=== PATIENT | female | born 1975 | race Caucasian/White ===

== ENCOUNTER 2018-10-20 12:09 | Outpatient (REF) | payer BC, SELFPAY ==
[2018-10-20 22:37] LABS: ALT 35 U/L (12-78); AST 12 U/L (15-37); Albumin 3.8 g/dL (3.4-5.0); Alkaline Phosphatase 81 U/L (46-116); Anion Gap 10.1 mmol/L (3-11); BUN 10 mg/dL (7-18); Bilirubin, Total 0.6 mg/dL (0.2-1.0); CO2 25.9 mmol/L (21.0-32.0); CREATININE 0.69 mg/dL (0.55-1.02); Calcium 8.9 mg/dL (8.5-10.1); Chloride 103 mmol/L (98-107); Cholesterol 191 mg/dL (50-200); Glucose 97 mg/dL (70-100); HDL Cholesterol 44 mg/dL (40-60); LDL CHOLESTEROL 125 mg/dL (<100); Potassium 4.4 mmol/L (3.5-5.1); Sodium 139 mmol/L (136-145); Triglyceride 101 mg/dL (30-150)
== END 2018-10-20 12:29 ==
LOC: NCHCN 12:09
PROVIDERS: PCP Nurse Practitioner Family; Visit Provider Nurse Practitioner Family
DX: E78.5 Hyperlipidemia, unspecified (principal)
CPT/HCPCS: 80053; 80061; 83721

== ENCOUNTER 2020-02-12 09:40 | Outpatient (REF) | payer BC, SELFPAY ==
[2020-02-12 21:56] LABS: Anion Gap 7.6 mmol/L (3-11); BUN 11 mg/dL (7-18); CO2 25.4 mmol/L (21.0-32.0); CREATININE 0.51 mg/dL (0.55-1.02); Calcium 8.8 mg/dL (8.5-10.1); Calculated LDL 113 mg/dL (<100); Chloride 108 mmol/L (98-107); Cholesterol 174 mg/dL (<200); Glucose 117 mg/dL (74-106); HDL Cholesterol 40 mg/dL (40-60); Potassium 4.5 mmol/L (3.5-5.1); Sodium 141 mmol/L (136-145); Triglyceride 109 mg/dL (<150)
== END 2020-02-12 10:00 ==
LOC: NCHCN 09:40
PROVIDERS: PCP Nurse Practitioner Family; Visit Provider Nurse Practitioner Community Health
DX: E78.5 Hyperlipidemia, unspecified (principal); I10 Essential (primary) hypertension
CPT/HCPCS: 80048; 80061

== ENCOUNTER 2022-11-10 09:47 | Outpatient (REF) | payer BC, SELFPAY ==
[2022-11-10 15:19] LABS: HCT 39.4 % (36.0-46.0); HGB 12.4 g/dL (11.2-15.7); MCH 25.9 pg (27.0-33.0); MCHC 31.5 % (32.0-36.0); MCV 82 fL (80-95); Platelet Count 290 10^3/uL (130-400); RBC 4.79 10^6/uL (3.93-5.22); RDW 14.2 % (11.7-14.6); RDW-SD 42.4 fL
[2022-11-10 15:56] LABS: ALT 35 U/L (14-59); AST 22 U/L (15-37); Albumin 3.8 g/dL (3.4-5.0); Alkaline Phosphatase 93 U/L (46-116); BUN 15 mg/dL (7-18); Bilirubin, Total 0.6 mg/dL (0.2-1.0); CREATININE 0.8 mg/dL (0.55-1.02); Calcium 8.8 mg/dL (8.5-10.1); Calculated LDL 115 mg/dL (<100); Chloride 106 mmol/L (98-107); Cholesterol 182 mg/dL (<200); Estimated GFR 90.83 (mL/min/1.73m2); Glucose 168 mg/dL (74-106); HDL Cholesterol 43 mg/dL (40-60); Potassium 3.7 mmol/L (3.5-5.1); Sodium 140 mmol/L (136-145); TSH 1.45 uIU/mL (0.36-3.74); Total Protein 7.6 g/dL (6.4-8.2); Triglyceride 121 mg/dL (<150)
[2022-11-11 09:38] LABS: Hepatitis C Ab w Rflx HCV PCR Negative (Negative)
== END 2022-11-10 09:48 | disposition home or self-care (01) ==
LOC: NCHCN 09:47
PROVIDERS: PCP Nurse Practitioner Family; Visit Provider Nurse Practitioner Family
DX: Z00.00 Encounter for general adult medical examination without abnormal findings (principal); I10 Essential (primary) hypertension; R53.81 Other malaise; R53.83 Other fatigue; E78.5 Hyperlipidemia, unspecified; R73.09 Other abnormal glucose; Z11.59 Encounter for screening for other viral diseases
CPT/HCPCS: 80053; 80061; 85027; 86803; 83036; 84443

== ENCOUNTER 2023-11-25 12:32 | Outpatient (REF) | payer BC, SELFPAY ==
[2023-11-25 15:02] LABS: HCT 41.4 % (36.0-46.0); HGB 12.5 g/dL (11.2-15.7); MCH 25.8 pg (27.0-33.0); MCHC 30.2 % (32.0-36.0); MCV 85 fL (80-95); MPV 11.7 fL (8.0-11.0); Platelet Count 272 10^3/uL (130-400); RBC 4.85 10^6/uL (3.93-5.22); RDW-SD 43.7 fL; WBC 7.49 10^3/uL (4.4-10.8)
[2023-11-25 15:27] LABS: ALT 44 U/L (14-59); AST 23 U/L (15-37); Albumin 3.7 g/dL (3.4-5.0); Alkaline Phosphatase 95 U/L (46-116); Anion Gap 8.9 mmol/L (3-11); BUN 14 mg/dL (7-18); Bilirubin, Total 0.4 mg/dL (0.2-1.0); CO2 27.1 mmol/L (21.0-32.0); CREATININE 0.7 mg/dL (0.55-1.02); Calcium 9.1 mg/dL (8.5-10.1); Calculated LDL 100 mg/dL (<100); Chloride 107 mmol/L (98-107); Cholesterol 166 mg/dL (<200); Estimated GFR 105.95 (mL/min/1.73m2); Glucose 146 mg/dL (74-106); HDL Cholesterol 41 mg/dL (40-60); Sodium 143 mmol/L (136-145); TSH 1.07 uIU/Ml (0.36-3.74); Total Protein 7.4 g/dL (6.4-8.2); Triglyceride 127 mg/dL (<150)
[2023-11-25 15:46] LABS: Hemoglobin A1C 6.3 % (<5.7)
== END 2023-11-25 12:33 | disposition home or self-care (01) ==
LOC: NCHCN 12:32
PROVIDERS: PCP Nurse Practitioner Family; Visit Provider Nurse Practitioner Family
DX: R73.03 Prediabetes (principal); Z13.6 Encounter for screening for cardiovascular disorders; R53.83 Other fatigue
CPT/HCPCS: 80053; 80061; 85027; 83036; 84443

== ENCOUNTER 2024-04-13 12:20 | Outpatient (REF) | payer BC, SELFPAY ==
--- NOTE | 2024-04-13 10:30 | PAPFT_PTH ---
PATIENT: Zaida Dockery LOC: [facility]#:[id number] AGE/SX: 49/F ROOM: RE04/13/[address]: Arely Phan : 1975 BED: DIS: 04/13/2024 SPEC #: [id number] RECD: 04/13/24 17:42 STATUS: JUDITH QUINN #: [id number] TANYA: 04/13/24 10:[address]: Arely Ramirez DEPT: [facility] Cytology RECD BY: Ava Ambriz Tissues: 1 - CX/ENDOCX FOR PAP SMEARS Procedures: PAP THIN PREP/[facility] Screening HPV DNA PROBE Comments: [id number] (HPV 16 & 18/45)
== END 2024-04-13 12:21 | disposition home or self-care (01) ==
LOC: NCHCN 12:20
PROVIDERS: PCP Nurse Practitioner Family; Visit Provider Nurse Practitioner Family
DX: Z11.51 Encounter for screening for human papillomavirus (HPV) (principal); Z01.419 Encounter for gynecological examination (general) (routine) without abnormal findings
CPT/HCPCS: 88142; 87624